=== PATIENT | male | born 1980 | race American Indian/Alaskan Native ===

== ENCOUNTER 2020-04-01 17:19 | Emergency (ER) | payer OTHER ==
[2020-04-01 18:20] VITALS: BP 157/87
--- NOTE | 2020-04-01 20:21 | Emergency Department Report ---
- General Chief complaint: Skin/Abscess/Foreign Body Stated complaint: POSSIBLE LT EAR INFECTION Source: patient Mode of arrival: Ambulatory Limitations: No Limitations - History of Present Illness Initial comments: 39-year-old -[place] male presents to the emergency room stating he put tissue into his left ear while trying to clean it with peroxide. Patient denies any pain but says is uncomfortable. complaint: foreign body -: This evening Tetanus Up to Date: yes Severity scale (0 -10): 1 Treatments Prior to Arrival: none - Related Data Previous Rx's Medication Instructions Recorded Last Taken Type Gentamicin 0.3% Ophth Soln 2 drops OP Q4H #1 bottle 06/11/14 Unknown Rx traMADoL [Ultram] 50 mg PO Q6HR PRN #14 tablet 06/11/14 Unknown Rx Allergies Allergy/AdvReac Type Severity Reaction Status Date / Time No Known Allergies Allergy Verified 04/01/20 18:15 Abscess Boil HPI - HPI Chief Complaint: Skin/Abscess/Foreign Body Stated Complaint: POSSIBLE LT EAR INFECTION Home Medications: Previous Rx's Medication Instructions Recorded Last Taken Type Gentamicin 0.3% Ophth Soln 2 drops OP Q4H #1 bottle 06/11/14 Unknown Rx traMADoL [Ultram] 50 mg PO Q6HR PRN #14 tablet 06/11/14 Unknown Rx Allergies/Adverse Reactions: Allergies Allergy/AdvReac Type Severity Reaction Status Date / Time No Known Allergies Allergy Verified 04/01/20 18:15 ED Review of Systems ROS: Stated complaint: POSSIBLE LT EAR INFECTION Other details as noted in HPI Comment: All other systems reviewed and negative ED Past Medical Hx - Past Medical History Previous Medical History?: No - Surgical History Additional Surgical History: HERNIA - Social History Smoking Status: Never Smoker Substance Use Type: Alcohol - Medications Home Medications: Home Medications Medication Instructions Recorded Confirmed Last Taken Type Gentamicin 0.3% Ophth Soln 2 drops OP Q4H #1 bottle 06/11/14 Unknown Rx traMADoL [Ultram] 50 mg PO Q6HR PRN #14 tablet 06/11/14 Unknown Rx ED Physical Exam - General Limitations: No Limitations General appearance: alert, in no apparent distress - Head Head exam: Present: atraumatic, normocephalic - Eye Eye exam: Present: normal appearance - ENT ENT exam: Present: mucous membranes moist, TM's normal bilaterally (Post removal of tissue from the left ear) - Expanded ENT Exam Expanded Ear exam: Present: normal external inspection TM/Canal exam: Foreign Body: Left TM - Respiratory Respiratory exam: Absent: accessory muscle use - Back Exam Back exam: Present: normal inspection - Neurological Exam Neurological exam: Present: alert, oriented X3, normal gait - Psychiatric Psychiatric exam: Present: normal affect, normal mood - Skin Skin exam: Present: warm, dry, intact, normal color. Absent: rash ED Course Vital Signs 04/01/20 18:19 Temperature 97.1 F L Pulse Rate 80 Respiratory 20 Rate Blood Pressure 157/87 O2 Sat by Pulse 95 Oximetry ED Medical Decision Making - Medical Decision Making 39-year-old -[place] male presents to the emergency room stating he put tissue into his left ear while trying to clean it with peroxide. Patient denies any pain but says is uncomfortable. Critical care attestation.: If time is entered above; I have spent that time in minutes in the direct care of this critically ill patient, excluding procedure time. ED Disposition Clinical Impression: Foreign body in left ear Disposition: DC-01 TO HOME OR SELFCARE Is pt being admited?: No Does the pt Need Aspirin: No Condition: Stable Instructions: Ear Foreign Body, [id number] Additional Instructions: Do not place anything smaller than your elbow in your left ear or right ear.
== END 2020-04-01 20:24 | disposition home or self-care (01) ==
LOC: ED 17:19
DX: T16.2XXA Foreign body in left ear, initial encounter (principal); Z98.890 Other specified postprocedural states; Z79.899 Other long term (current) drug therapy; Y92.89 Other specified places as the place of occurrence of the external cause
CPT/HCPCS: 99281

== ENCOUNTER 2021-06-05 13:59 | Emergency (ER) | payer OTHER ==
--- NOTE | 2021-06-05 15:10 | Emergency Department Report ---
ED Animal Bite HPI - General Chief Complaint: Animal Bite Stated Complaint: DOG BITE Time Seen by Provider: 06/05/21 15:00 Source: patient Mode of arrival: Ambulatory Limitations: No Limitations - History of Present Illness Initial Comments: 41-year-old male presents to the ER today with complaints of dog bite to his left hand. Patient states that it was his dog and it occurred about 2 days ago. He states that it was an accidental. He states that after the incident he went to his primary care doctor's office. He states that he says it was up-to-date, and he was prescribed a antibiotic ointment and oral antibiotics to take. He states that he is here today because his doctor recommended that he comes to the the ER to get checked out. He states that his dog is not up-to-date on his immunization but he is adamant that the dog does not have any rabies. He has not notify animal control. He denies any redness or drainage or significant pain around the wound. He has been keeping it clean daily with peroxide. He is right-hand dominant. He reports no additional symptoms at this time. MD Complaint: animal bite -: days(s) (2) - Related Data Previous Rx's Medication Instructions Recorded Last Taken Type Gentamicin 0.3% Ophth Soln 2 drops OP Q4H #1 bottle 06/11/14 Unknown Rx traMADoL [Ultram] 50 mg PO Q6HR PRN #14 tablet 06/11/14 Unknown Rx Allergies Allergy/AdvReac Type Severity Reaction Status Date / Time No Known Allergies Allergy Verified 04/01/20 18:15 ED Review of Systems ROS: Stated complaint: DOG BITE Other details as noted in HPI ED Past Medical Hx - Surgical History Additional Surgical History: HERNIA - Social History Smoking Status: Never Smoker Substance Use Type: Alcohol - Medications Home Medications: Home Medications Medication Instructions Recorded Confirmed Last Taken Type Gentamicin 0.3% Ophth Soln 2 drops OP Q4H #1 bottle 06/11/14 Unknown Rx traMADoL [Ultram] 50 mg PO Q6HR PRN #14 tablet 06/11/14 Unknown Rx ED Physical Exam - General Limitations: No Limitations ED Course Vital Signs 06/05/21 14:57 Temperature 98.5 F Pulse Rate 76 Respiratory 18 Rate Blood Pressure 166/105 [Right] O2 Sat by Pulse 99 Oximetry Critical care attestation.: If time is entered above; I have spent that time in minutes in the direct care of this critically ill patient, excluding procedure time. ED Disposition Clinical Impression: Dog bite, hand Disposition: 01 HOME / SELF CARE / HOMELESS Is pt being admited?: No Does the pt Need Aspirin: No Condition: Stable Instructions: Animal Bite, Adult, [id number], Wound Care, Adult Additional Instructions: The wound to your left hand is with healing well. You can continue using antibiotic cream that was prescribed to you by your primary care doctor. Continue taking the antibiotics as prior prior to you by your primary care doctor. I do recommend that she notify animal control so that he can come observe your dog for 10 days. If there is no signs for concern for rabies and there is no indication for rabies immunizations. If there is concern they will notify to return to the ER. Return to the ER if anything changes or worsens in any way. Referrals: PRIMARY CARE, [Referring] - 3-5 Days Time of Disposition: 15:10 Medical Decision Making - [facility] 41-year-old male presents to the ER today with complaints of dog bite to his left hand. Patient states that it was his dog and it occurred about 2 days ago. He states that it was an accidental. He states that after the incident he went to his primary care doctor's office. He states that he says it was up-to-date, and he was prescribed a antibiotic ointment and oral antibiotics to take. He states that he is here today because his doctor recommended that he comes to the the ER to get checked out. He states that his dog is not up-to-date on his immunization but he is adamant that the dog does not have any rabies. He has not notify animal control. He denies any redness or drainage or significant pain around the wound. He has been keeping it clean daily with peroxide. He is right-hand dominant. He reports no additional symptoms at this time. 1515: Patient is well-appearing, nontoxic and not in any significant distress. Patient has a single puncture wound noted to the hypothenar eminence of the left hand. Wound is healing well. No tenderness or any signs of infection. He has full range of motion of his hand and fingers. Left upper extremity neurovascular intact. Patient is adamant that his dog does not have rabies but I still recommend that he notified animal control so that the dog can be observed for 10 days. He was already prescribed oral antibiotics and antibiotic ointment by his primary care provider which I recommend I start taking. His tetanus already updated. At this time there is nothing additional to do from an emergent standpoint. Patient expressed understanding of instructions and agree with plan. Patient was stable at time of discharge. Patient was stable at time of discharge.
[2021-06-05 15:33] VITALS: BP 153/89
== END 2021-06-05 15:35 | disposition home or self-care (01) ==
LOC: ED 13:59
DX: S61.452A Open bite of left hand, initial encounter (principal); F10.20 Alcohol dependence, uncomplicated; W54.0XXA Bitten by dog, initial encounter; Y93.89 Activity, other specified; Y92.89 Other specified places as the place of occurrence of the external cause; Y99.8 Other external cause status
CPT/HCPCS: 99282

== ENCOUNTER 2021-07-23 12:34 | Outpatient (CLI) | payer OTHER ==
--- NOTE | 2021-07-24 11:31 | Electrocardiograph Report ---
[facility] Test Date: 2021-07-23 Test Time: 12:55:01 Pat Name: JAKE LOYA Department: Room: Gender: M Welding Machine Tender: LISET : 1980 Requested By: DANA JHA Order Number: [id number] Reading MD: Segun Swan Measurements Intervals [place] Rate: 71 P: 79 GA: 158 QRS: 69 QRSD: 90 T: 21 QT: 407 QTc: 442 Interpretive Statements Sinus rhythm No previous ECG available for comparison Electronically Signed On 07-24-2021 11:30:59 EDT by Segun Swan
== END 2021-07-23 12:35 | disposition home or self-care (01) ==
LOC: CARD 12:34
PROVIDERS: ATTEND Internal Medicine
DX: I10 Essential (primary) hypertension (principal)
CPT/HCPCS: 93005